=== PATIENT | male | born 1990 | race African-American/Black ===

== ENCOUNTER 2021-02-01 01:09 | Day surgery (SDC) | payer OTHER, SELFPAY ==
[2021-01-20 15:26] VITALS: BMI 27.7
--- NOTE | 2021-01-20 15:27 | PC.NURSE ---
Report to the [facility] at time 0600 on date 02/01/21. OR Time: 0730. - You and your visitor will be asked a series of questions to screen for COVID 19 for your protection. - A mask is required within the hospital. Preoperative COVID Testing Requirements: PT TO EITHER BRING RECORD OF COVID VACCINATION OR HAVE COVID TEST ON 01/29 AND BRING A COPY OF NEGATIVE RESULTS No COVID Test needed if: (proof is required; if not received patient will have Rapid Test prior to entry) - Patient has received COVID Vaccine at least 14 days prior to procedure date or - Patient has positive COVID test result within last 90 days of surgery date. COVID Test needed if above criteria is not met If not COVID vaccinated a COVID test must be conducted within 72 hours of surgery and patient is asked to isolate self from time of testing until procedure. Patients may have clear liquids (water, carbonated beverages, clear teas, apple juice) until 3 hours prior to surgery with a maximum of 20 ounces. - No food from midnight until time of surgery Take the following medications with a SIP of water the morning of surgery: NO MEDICATIONS LISTED ON REPORT Medications to discontinue per physician: NO MEDICATIONS LISTED ON REPORT Please no make-up, nail azeri, hairspray, perfume, deodorant, or body powder the day of surgery. No jewelry (including any body piercings) or valuables the day of surgery, leave them at home. Please take a shower or bath the night before, or the morning of, surgery with an antibacterial soap. Wear comfortable, loose fitting clothing. - Jewelry must be removed prior to entering the operating room. Rings and piercings that are not removed may be cut off. - The hospital will not accept responsibility for valuables. - Please leave all valuables, including medications, at home the day of surgery. - We also recommend that you do not drive, make important decision, drink alcoholic beverages, or take any drugs that were not prescribed by your health care provider for at least 24 hours after your discharge time. Follow any additional instructions given to you from your surgeon. Telephone instructions FAXED to JORGE AT [facility] and asked if any additional questions and then verbalized understanding. Patient advised to call surgeon office or pre surgery nurse liaison [phone] if any additional questions.
--- NOTE | 2021-01-20 15:39 | PC.NURSE ---
Pt information entered as obtained from medical report. Very limited information and history provided.
[2021-02-01] VITALS (9 sets, daily range): BP systolic 130–143; BP diastolic 80–100; PULSE 64–85; RESP 13–20; TEMP 36.2–36.8; O2SAT 97–99
[2021-02-01] MEDS: LACTATED RINGERS 1,000 ML 30 ML IV CONT ×2 (06:55→09:32)
--- NOTE | 2021-02-01 07:03 | WPDANESEPPF ---
Anes - Initial Pre Proc Eval Procedure: Operation Date: 02/01/21 07:30 Proposed Procedures p Excision of Left Submandibular Gland with Possible Lymph Node Dissection - Trevin Infante MD Date/Time: 02/01/21 07:03 Surgeon: Trevin Infante MD Pre Op Diagnosis: Left neck mass Patient Data Age: 30 Gender: M Height: 1.96 m Weight: 106 kg Allergies Allergy/AdvReac Type Severity Reaction Status Date / Time No Known Allergies Allergy Verified 02/01/21 06:19 Home Medications Medication Instructions Recorded Confirmed Type No Home Medications 01/20/21 02/01/21 History Patient hx anesthesia problems: none Family hx anesthesia problems: none Results Review: All pre-operative results and documents have been reviewed as part of the pre-operative evaluation. [facility] Social History Social History Smoking status: Current every day smoker Living arrangements: incarcerated Anes - Eval Final PreProcedure Day of Procedure 02/01/21 07:03 Patient weight: overweight Heart: regular rate and rhythm Lungs: clear to auscultation Airway: Mallampati scale class II Neurological: alert and oriented Last oral intake: >/= 8 hours ASA classification: II Emergent: no Anesthetic plan: proceed Anesthesia type and monitoring: general ETT and standard monitoring Results Review: All pre-operative results and documents have been reviewed as part of the pre-operative evaluation. Informed Consent: The patient's anesthetic plan and its attendant risks and benefits were discussed with the patient/family/POA. Questions were solicited and answers provided to the satisfaction of the patient/family/POA.
--- NOTE | 2021-02-01 07:25 | PM.IMHP ---
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 Here today for excision. Review of Systems Review of Systems: All systems reviewed & are unremarkable except as noted in HPI and below [facility] Social History Social History Smoking status: Current every day smoker Living arrangements: incarcerated Meds Home Medications and Allergies Home Medications Medication Instructions Recorded Confirmed Type No Home Medications 01/20/21 02/01/21 History Allergies Allergy/AdvReac Type Severity Reaction Status Date / Time No Known Allergies Allergy Verified 02/01/21 06:19 Exam Narrative: Left submandibular mass, 7cm. No cervical adenopathy or other abnormality. Rest of exam wnl. Assessment and Plan Assessment and plan (1) Submandibular gland mass: Code(s): K11.8 - Other diseases of salivary glands Status: Acute Assessment and Plan: Luis Alberto is here for left submandibular gland excision, possible node dissection for a large pleomorphic adenoma. Is an inmate at [facility]. r/b/a discussed.
--- NOTE | 2021-02-01 07:28 | WPDHPUPDATE1 ---
History and Physical Update Update Date/Time: 02/01/21 07:28 History and Physical has been reviewed, including an updated exam of the patient. There are NO changes in the patient's condition. Risks, benefits, and alternatives have been discussed and questions answered. Patient agrees to proceed with procedure.
[2021-02-01] MEDS: ceFAZolin 2 GM/D5W 50 ML 2 GM/50 ML BAG IVPB (07:37)
--- NOTE | 2021-02-01 07:46 | SUR.PREOP ---
0600-PT ARRIVED W/2 CORRECTIONAL FACILITY GUARDS AND PD[place] HEAD, [facility]ARA [facility]ICENSED PRACTICAL NURSE. REGISTRATION AWARE AND WILL REGISTER HIM IN PATIENT ROOM. 06-REGISTRATION COMPLETE AND CARE TRANSFERRED TO NURSING STAFF.
[2021-02-01] MEDS: LIDO 1%/EPINEPHRINE 1:100,000 50 ML VIAL INFILTRATE (07:54)
[2021-02-01] MEDS: MUPIROCIN 2% OINT 22 GM TUBE 1 APPLIC TOPICAL (09:25)
--- NOTE | 2021-02-01 09:39 | P.OP_ITS ---
Procedure Note - Detailed Date of Procedure 02/01/21 Pre-op Diagnosis Left neck mass Post-op Diagnosis same Procedure Performed Excision of left submandibular gland and submandibular mass with facial nerve monitoring. Surgeon Trevin Infante MD Anesthesia general Indications left neck mass, previous bx pleomoprhic adenoma Findings 5x7cm mass removed Description of Procedure Patient was identified in the preoperative holding area and all questions were answered. The left neck was marked and consent verified. They were brought back to the OR and placed under anesthesia via endotracheal intubation. The bed was rotated 180 degrees and a shoulder roll placed. The area on the neck and face were shaved. Timeout was performed. The patient was prepped and draped in standard fashion for left neck surgery. The incision was marked in a natural crease and 5cc of 1% lidocaine with epinephrine was injected. Incision was made with a knife down to platysma. Electrocautery was used to transect the platysmal layer. Subplatysmal flaps were elevated superiorly and inferiorly. The superficial cervical fascia was carefully dissected and the marginal mandibular branch of the facial nerve was identified and dissected out. The facial vein and artery were identified and cut with harmonic scalpel. The fascial plane was elevated superiorly, protecting the marginal nerve. With the nerve protected, dissection proceeded superiorly along the edge of mandible, dissecting the submandibular gland free. The large adenoma was prominent and was dissected in continuity with the gland. The anterior belly of the digastric was identified, skeletonized and the fascia along the muscle was taken with specimen. The posterior belly was then identified. The inferior aspect of the gland was dissected down to the posterior belly and the facial vessels were encountered and dissected with harmonic. The SCM was identified and the submandibular gland was seperated from the parotid and anterior border of the muscle. The lingual nerve and submandibular ganglion were identified. The descending fibers were clipped and cut and the nerve was preserved. [place]'s duct was dissected with harmonic scalpel and clamped and cut with harmonic scalpel, sealing the wound. The specimen was removed and sent to pathology for analysis. The wound bed was irrigated and hemostasis was obtained. Layered closure with vicryl, deep dermal and running subcuticular suture was performed. The skin was then closed with proline suture and a BRITNI drain was placed in the wound and secured to the skin. The patient was returned to anesthesia who woke them in the OR and transferred to PACU for recovery without complication. Estimated Blood Loss 5 Drains Yes (7Fr flat BRITNI drain) Packing No Pathology yes (Left submandibular mass and gland) Complications No immediate complications Condition stable Disposition PACU
[2021-02-01] MEDS: fentaNYL CITRATE INJ (*CRX) 100 MCG/2 ML VIAL 25 MCG IV PUSH ×5 (09:44→10:16)
[2021-02-01] MEDS: oxyCODONE HCL (*CRX) 5 MG TAB IR PO (10:50)
== END 2021-02-01 11:41 | disposition other institution (70) ==
PROVIDERS: Visit Provider Otolaryngology
PROC: (CPT 42440; principal; 2021-02-01 07:30)
DX: D11.7 Benign neoplasm of other major salivary glands (principal); F17.210 Nicotine dependence, cigarettes, uncomplicated
CPT/HCPCS: 42440; 88304; 88307; A9270; J0330; J0690; J1100; J2250; J2405; J2704; J3010; J7120